=== PATIENT | female | born 1950 | race Caucasian/White ===

== ENCOUNTER 2020-08-13 03:07 | Emergency (ER) | payer MEDICARE, SELFPAY ==
--- NOTE | ~2020-08-13 | CT_ITS ---
EXAMINATION: CT cervical spine wo con DATE: 08/13/2020 04:36 INDICATION: Fall. Neck pain. TECHNIQUE: Computed tomography (CT) of the cervical spine was performed without intravenous contrast. Automated exposure control and iterative reconstruction technique were employed. Exam dose: 111.41 mGy-cm total exam DLP. COMPARISON: None FINDINGS: There is straightening of the cervical spine which may be due to muscle spasm and/or positi oning. C1 and C2 are normally aligned and the odontoid process is intact. There is minimal anterolisthesis at C2-3. There is fusion of the posterior elements at C2-3 and C5-6. There is degenerative change at the remai zoe apophyseal joints. There is severe degenerative disease and prominent uncovertebral joint spurring at C3-4, C4-5, C5-6 a nd C6-7 with associated minimal retrolisthesis at C4-5. . There is minimal anterolisthesis at C7-T1. No fracture or dislocation or locked facet or prevertebral soft tissue swelling is detected. Incidental finding of left thyroid lobe enlargement and calcifications, likely secondary to goiter. IMPRESSION: Straightening; no fracture or dislocation or locked facet Extensive degenerative changes of the cervical spine Reviewed, dictated and finalized at [facility]. Reviewed, dictated and finalized at location [facility].
--- NOTE | ~2020-08-13 | XR_ITS ---
XR pelvis 1-2V DATE: 08/13/2020 04:05 INDICATION: Fall. Pelvic injury. TECHNIQUE: AP views COMPARISON: None FINDINGS: Battery pack overlies left iliac area with electrode extending through a right sacral neura l foramen. Multilevel degenerative disc disease and dextroscoliosis of the lumbar spine. Diffuse osteopenia. The pubic symphysis and sacroiliac joints are intact. No pelvic fracture or bone destruction is evide nt. The hip joint spaces are symmetric and well preserved. No hip fracture or dislocation is evident. IMPRESSION: No pelvic fracture Reviewed, dictated and finalized at location [facility]. IMPRESSION: No pelvic fracture
--- NOTE | ~2020-08-13 | XR_ITS ---
XR chest 1V portable DATE: 08/13/2020 04:05 INDICATION: Fall. TECHNIQUE: Portable upright AP chest on 08/23/2020 at 0332 hours COMPARISON: 05/11/2019 AP chest 11/18/2014 2 view chest FINDINGS: Battery pack overlies the right chest. Wires overlie the left chest, the left battery pack has been removed. Normal heart size. No hilar or mediastinal enlargement. No pulmonary infiltrate or consolidation, ple ural effusion or pulmonary vascular congestion or pneumothorax. Double density in the lower mid chest likely due to hiatal hernia. Diffuse osteopenia. Old right rib fractures. IMPRESSION: No active cardiac pulmonary disease Reviewed, dictated and finalized at location [facility].
--- NOTE | ~2020-08-13 | CT_ITS ---
CT lumbar spine wo con DATE: 08/13/2020 04:36 INDICATION: Fall. Back pain. TECHNIQUE: Axial images through the lumbar spine with sagittal and coronal reconstructions. Exam dose: 697.15 mGy-cm total exam DLP. COMPARISON: None FINDINGS: There is severe likely chronic burst fracture deformity at L1 with up to 6 mm retropulsion of fracture into the spinal canal. There is severe degenerative disc disease at L3-4. There is fusion of the vertebral bodies at L4-5. There is grade 1 anterolisthesis and severe degenerative disc disease at L5-S1. Prominent degenerative change at the apophyseal joints of the lumbar spine, particularly lower lumbar and lumbosacral area. Osteopenia. Incidental finding of hiatal hernia. Left nephrolithiasis. 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 Reviewed, dictated and finalized at location [facility]. 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
--- NOTE | ~2020-08-13 | CT_ITS ---
EXAMINATION: CT brain wo con DATE: 08/13/2020 04:36 INDICATION: Fall. Headache. TECHNIQUE: Computed tomography (CT) of the head was performed without intravenous contrast. The mA wa s adjusted according to patient size. Iterative reconstruction technique was employed. Exam dose: 60 5.33 mGy-cm total exam DLP. COMPARISON: 05/11/2019 CT brain FINDINGS: Bilateral stimulator implants are again noted extending into the thalami. No intracranial mass lesion or hemorrhage or cerebrovascular accident is evident. No midline shift or mass effect. Bilateral carotid siphon internal carotid artery calcifications and vertebral and basilar artery calc ifications. There is nonspecific diminished attenuation of the cerebral white matter, likely due to c hronic small vessel ischemic changes. No subdural or epidural hematoma. There is mucoperiosteal thickening and fluid level of the right maxillary sinus consistent with right maxillary sinusitis. There is partial opacification of anterior right ethmoid air cells. The include d paranasal sinuses and mastoid air cells are otherwise unremarkable. No fracture or bone destruction of the cranial vault. IMPRESSION: Bilateral thalamic stimulator implants Cerebral atherosclerosis and chronic small vessel ischemic changes of cerebral white matter Right maxillary sinusitis Reviewed, dictated and finalized at [facility]. Reviewed, dictated and finalized at location [facility].
[2020-08-13 03:10] VITALS: BP 146/79; PULSE 76; RESP 17; TEMP 36.6; O2SAT 100
--- NOTE | 2020-08-13 03:58 | ED.GENADULT ---
HPI - General Adult General Chief complaint: Fall Stated complaint: unspecified Time Seen by Provider: 08/13/20 03:49 Source: RN notes reviewed History of Present Illness HPI narrative: Patient presents emergency department from [facility] via EMS for a fall. Patient rolled out of bed this a.m. approximately 1 hour prior to arrival. Per the staff her bed is approximately 1 foot off the ground. Patient is complaining of pain in the left lower back. There is no known loss of consciousness. She denies any vision changes numbness or tingling in the extremities chest pain shortness of breath abdominal pain or any other symptoms patient states at baseline she does not ambulate Related Data Allergies Allergy/AdvReac Type Severity Reaction Status Date / Time erythromycin base Allergy Unknown Unverified 01/03/20 14:50 lenalidomide Allergy Unknown Hallucinati Unverified 01/03/20 14:50 on lorazepam Allergy Unknown Confusion Unverified 01/03/20 14:50 metoclopramide Allergy Unknown Unverified 01/03/20 14:50 morphine Allergy Unknown Unverified 01/03/20 14:50 prochlorperazine Allergy Unknown Unverified 01/03/20 14:50 promethazine Allergy Unknown Unverified 01/03/20 14:50 Sulfa (Sulfonamide Allergy Unknown Unverified 01/03/20 14:50 Antibiotics) AMOXICILLIN TRIHYDRATE Allergy Unknown Uncoded 01/03/20 14:50 Ativan Allergy Unknown Uncoded 01/03/20 14:50 erythromycin base Allergy Unknown Uncoded 08/31/18 08:24 POTASSIUM CLAVULANATE Allergy Unknown Uncoded 01/03/20 14:50 Sulfa (Sulfonamide Allergy Unknown Uncoded 08/31/18 08:24 Antibiotics) Review of Systems Review of Systems: Narrative: Gen.: Denies fevers or chills Eyes: Denies eye pain or visual change ENT: Denies congestion Respiratory: Denies shortness of breath or cough CV: Denies chest pain or palpitations GI: Denies abdominal pain nausea, emesis or diarrhea denies bowel or bladder incontinence reports chronic indwelling Flores Musculoskeletal: See HPI Neuro: Denies numbness, tingling, weakness or focal weakness Skin: Denies rash Except as documented, all other systems reviewed and negative [facility] Past Medical History Medical History (Updated 08/13/20 @ 05:14 by Valeriano Wills DO) Dementia Social History Social History (Updated 08/13/20 @ 04:00 by Valeriano Wills DO) Smoking status: Never smoker Exam Narrative: Exam Narrative: APPEARANCE: No acute distress, nontoxic, resting in bed EYES: EOMI PERRL HEENT: Normocephalic, atraumatic, OMM Neck: Supple, no midline tenderness palpation RESPIRATORY: No respiratory distress Clear to auscultation bilaterally with no rhonchi wheezing or rales. CARDIOVASCULAR: Regular rate and rhythm without murmurs rubs or gallops. ABDOMINAL: Soft, nontender, nondistended, no rebound or guarding MUSCULOSKELETAl: Moves all extremities. No clubbing, cyanosis or edema. No tenderness palpation of bilateral upper and lower extremities Back: No midline thoracic lumbar tenderness palpation, tender palpation over left paravertebral muscles L3-5 NEURO: Awake and alert x 3. Following commands, speech normal, no focal deficits SKIN:: Warm, dry. No rashes lesions or abrasions PSYCHIATRIC: Normal affect/mood, Course Course Emergency Course: Following CT scan reevaluate the patient patient with no midline lumbar spine tenderness to palpation specifically no tenderness around the L1 region Discussed with patient results of workup and diagnosis. Discussed need for follow-up with primary care, proper use of medication, and reasons to return to the emergency department. Patient understands and agrees to current treatment plan Vital Signs Vital signs: Vital Signs Temperature 98 F 08/13/20 03:10 Pulse Rate 76 08/13/20 03:10 Respiratory Rate 17 08/13/20 03:10 Blood Pressure 146/79 H 08/13/20 03:10 Pulse Oximetry 100 08/13/20 03:10 Temperature 98 F 08/13/20 03:10 Pulse Rate 76 08/13/20 03:10 Respiratory Rate 17
[2020-08-13 05:00] VITALS: BP 140/76; PULSE 84; RESP 18; O2SAT 94
[2020-08-13 05:27] VITALS: RESP 18
--- NOTE | 2020-08-13 05:44 | PC.NURSE ---
pt states she does not ambulate and gets around with WC
--- NOTE | 2020-08-13 06:08 | PC.NURSE ---
Report given to DELIO Simmons at [place]. All questions/concerns addressed at this time.
[2020-08-13 06:41] VITALS: BP 125/77; PULSE 78; RESP 17; O2SAT 99
--- NOTE | 2020-08-13 07:10 | PC.NURSE ---
ASSUMED PT CARE FROM DELIO HAYES AT THIS TIME.
--- NOTE | 2020-08-13 07:42 | PC.NURSE ---
PER US PT EMS MOVED TO [id number].
[2020-08-13 09:02] VITALS: BP 134/75; PULSE 74; RESP 16; O2SAT 97
[2020-08-13 10:18] VITALS: BP 133/68; PULSE 68; RESP 16; O2SAT 100
== END 2020-08-13 10:19 ==
PROVIDERS: Emergency Provider Emergency Medicine; PCP Internal Medicine
DX: S39.92XA Unspecified injury of lower back, initial encounter (principal); F03.90 Unspecified dementia, unspecified severity, without behavioral disturbance, psychotic disturbance, mood disturbance, and anxiety; J32.0 Chronic maxillary sinusitis; I67.2 Cerebral atherosclerosis; M50.30 Other cervical disc degeneration, unspecified cervical region; M51.36 Other intervertebral disc degeneration, lumbar region; M51.37 Other intervertebral disc degeneration, lumbosacral region; W06.XXXA Fall from bed, initial encounter
CPT/HCPCS: 70450; 71045; 72125; 72131; 72170; 99284

== ENCOUNTER 2020-09-01 10:27 | Outpatient (NON) | payer MEDICARE, SELFPAY ==
[2020-09-01 11:06] LABS: Add Urine Microscopic? YES; Appearance Urine Cloudy (Clear); Bacteria Urine Trace /hpf; Bilirubin Urine Negative (Negative); Blood Urine 1+ (Negative); Color Urine Yellow (Yellow); Glucose Urine UA Negative (Negative); Hyaline Casts Urine 20-29 /lpf; Ketones Urine Trace mg/dL (Negative); Leukocyte Esterase Ur 3+ LEU/UL (NEGATIVE); Mucus Urine Few /lpf; Nitrate Urine Negative (Negative); Protein Urine 1+ mg/dL (Negative); Specific Grav Ur 1.016 (1.001-1.035); Squamous Epithelial Cell Urine Occasional /hpf (Few); Urobilinogen Urine Negative mg/dL (<2.0); WBC Urine >75 /hpf (0-3)
== END 2020-09-01 10:28 ==
PROVIDERS: PCP Internal Medicine; Visit Provider Internal Medicine
DX: G20 Parkinson's disease (principal); R33.9 Retention of urine, unspecified; I69.351 Hemiplegia and hemiparesis following cerebral infarction affecting right dominant side; Z46.6 Encounter for fitting and adjustment of urinary device
CPT/HCPCS: 81001; 87077; 87086; 87088; 87186

== ENCOUNTER 2020-11-17 14:47 | Outpatient (NON) | payer MEDICARE, SELFPAY ==
[2020-11-17 15:52] LABS: Add Urine Microscopic? YES; Appearance Urine Cloudy (Clear); Bacteria Urine Trace /hpf; Bilirubin Urine Negative (Negative); Color Urine Yellow (Yellow); Glucose Urine UA Negative (Negative); Ketones Urine Trace mg/dL (Negative); Leukocyte Esterase Ur 3+ LEU/UL (Negative); Mucus Urine Few /lpf; Nitrate Urine Negative (Negative); Protein Urine 1+ mg/dL (Negative); Specific Grav Ur 1.017 (1.001-1.035); Urobilinogen Urine Negative mg/dL (<2.0); WBC Urine >75 /hpf
[2020-11-17 15:54] LABS: Blood Urine Negative (Negative)
== END 2020-11-17 14:48 ==
PROVIDERS: PCP Internal Medicine; Visit Provider Internal Medicine
DX: N31.9 Neuromuscular dysfunction of bladder, unspecified (principal); G20 Parkinson's disease; Z43.5 Encounter for attention to cystostomy
CPT/HCPCS: 81001; 87077; 87086; 87088; 87186

== ENCOUNTER 2020-12-02 11:26 | Outpatient (NON) | payer MEDICARE, SELFPAY ==
[2020-12-02 11:51] LABS: Add Urine Microscopic? YES; Appearance Urine Turbid (Clear); Bilirubin Urine Negative (Negative); Blood Urine 1+ (Negative); Budding Yeast Urine Present /hpf; Color Urine Yellow (Yellow); Glucose Urine UA Negative (Negative); Ketones Urine Trace mg/dL (Negative); Leukocyte Esterase Ur 2+ LEU/UL (NEGATIVE); Mucus Urine Heavy /lpf; Nitrate Urine Positive (Negative); Protein Urine 3+ mg/dL (Negative); Specific Grav Ur 1.016 (1.001-1.035); Transitional Epi Cells Urine Rare /hpf (None Seen); Urobilinogen Urine Negative mg/dL (<2.0); WBC Urine 31-50 /hpf (0-3)
== END 2020-12-02 11:27 ==
PROVIDERS: PCP Internal Medicine
DX: Z43.5 Encounter for attention to cystostomy (principal); N31.9 Neuromuscular dysfunction of bladder, unspecified; G20 Parkinson's disease; Z46.6 Encounter for fitting and adjustment of urinary device
CPT/HCPCS: 81001; 87077; 87086; 87088; 87186

== ENCOUNTER 2020-12-21 14:59 | Inpatient (IN) | payer MEDICARE, SELFPAY ==
[2020-12-21] VITALS (9 sets, daily range): BP systolic 102–153; BP diastolic 46–79; PULSE 60–87; RESP 14–27; TEMP 36.4–37.6; O2SAT 94–98; BMI 18.6
--- NOTE | ~2020-12-21 | XR_ITS ---
EXAMINATION: XR chest 1V EXAM DATE: 12/21/2020 17:19 INDICATION: Transient alteration of awareness. TECHNIQUE: Portable AP frontal chest x-ray was obtained. There is no prior study for comparison. FINDINGS: Deep brain stimulator pack and leads. The lungs are clear. There are no pleural effusions. The cardiomediastinal silhouette is within normal limits. There is no pneumothorax suspected. The bones and soft tissues are unremarkable. IMPRESSION: No acute cardiopulmonary findings. Reviewed, dictated and finalized at location G. RNMENT GUARD
--- NOTE | ~2020-12-21 | CT_ITS ---
EXAMINATION: CT brain wo con, CT cervical spine wo con EXAM DATE: 12/21/2020 17:17 INDICATION: Altered mental status. TECHNIQUE: Spiral CT of the head was performed without contrast. Axial, coronal and sagittal images were reviewed. The dose-length product (DLP) for this examination was 605.33 (accession [id number]), 92.83 (accession [id number]) mGy-cm. The exposure was tailored according to patient size, a nd iterative reconstruction (ASIR) was used as additional dose reduction technique. Comparison is mad e to prior examination from 08/13/2020. FINDINGS: HEAD CT: There is no acute intraparenchymal hemorrhage. No evidence of intraparenchymal brain mass l esion. No evidence of acute infarction. There is moderate periventricular and subcortical hypodensit y, nonspecific but probably related to small vessel ischemic disease. There is moderate prominence of the sulci and ventricles related to cerebral atrophy. There is intracranial carotid arterioscler osis. There is no mass effect or midline shift. There is no obstructive hydrocephalus suspected. T here are no extra-axial collections. There are no acute calvarial fractures. The orbits are unremar kable. Soft tissue is unremarkable. The visualized sinuses and mastoid air cells are well aerated. CERVICAL CT: There is no evidence of acute cervical fracture. The odontoid process is intact. Pre- dens space is normal. Prevertebral soft tissue is normal. There are no soft tissue abnormalities id entified. There is no disc space widening or traumatic vertebral body subluxation suspected. There is advanced cervical spondylosis. A detailed level by level evaluation of spondylosis can be added a s addendum if requested. IMPRESSION: 1. No acute intracranial findings or cervical fracture. 2. Advanced cervical spondylosis. 3. Age-related intracranial findings. Reviewed, dictated and finalized at location G. EMATIC MACHINE OPERATOR IMPRESSION: 1. No acute intracranial findings or cervical fracture. 2. Advanced cervical spondylosis. 3. Age-related intracranial findings.
--- NOTE | 2020-12-21 15:06 | ED_ITS ---
HPI - General Adult General Chief complaint: Urogenital-Female Stated complaint: supra-pubic catheter Related Data Allergies Allergy/AdvReac Type Severity Reaction Status Date / Time erythromycin base Allergy Unknown Unverified 11/04/20 07:35 lenalidomide Allergy Unknown Hallucinati Unverified 11/04/20 07:35 on lorazepam Allergy Unknown Confusion Unverified 11/04/20 07:35 metoclopramide Allergy Unknown Unverified 11/04/20 07:35 morphine Allergy Unknown Unverified 11/04/20 07:35 prochlorperazine Allergy Unknown Unverified 11/04/20 07:35 promethazine Allergy Unknown Unverified 11/04/20 07:35 Sulfa (Sulfonamide Allergy Unknown Unverified 11/04/20 07:35 Antibiotics) AMOXICILLIN TRIHYDRATE Allergy Unknown Uncoded 11/04/20 07:35 Ativan Allergy Unknown Uncoded 11/04/20 07:35 erythromycin base Allergy Unknown Uncoded 08/31/18 08:24 POTASSIUM CLAVULANATE Allergy Unknown Uncoded 11/04/20 07:35 Sulfa (Sulfonamide Allergy Unknown Uncoded 08/31/18 08:24 Antibiotics) [facility] Past Medical History Medical History (Updated 08/14/20 @ 00:00 by Salina Alonso) Dementia Social History Social History (Updated 08/13/20 @ 04:00 by Valeriano Wills DO) Smoking status: Never smoker
--- NOTE | 2020-12-21 15:18 | ED.GENADULT ---
HPI - General Adult General Chief complaint: Urogenital-Female Stated complaint: supra-pubic catheter Source: EMS History of Present Illness HPI narrative: Patient is a 70 y/o female brought in by EMS for suprapubic catheter problem. Family requested catheter be irrigated. There has been some leakage around the catheter. Patient is unable to provide any history. reports that patient has been more confused during last 2 days. Related Data Home Medications Medication Instructions Recorded Confirmed ascorbic acid (vitamin C) 500 mg PO DAILY 12/21/20 12/21/20 carbidopa-levodopa tablet 12/21/20 carbidopa-levodopa tablet PO 12/21/20 dexamethasone 12/21/20 methenamine hippurate g 12/21/20 paroxetine HCl mg PO 12/21/20 pomalidomide 2 mg PO DAILY 12/21/20 12/21/20 potassium chloride meq PO 12/21/20 valacyclovir 12/21/20 12/21/20 Allergies Allergy/AdvReac Type Severity Reaction Status Date / Time erythromycin base Allergy Unknown Other Verified 12/21/20 18:30 lenalidomide Allergy Unknown Hallucinati Verified 12/21/20 18:30 on lorazepam Allergy Unknown Confusion Verified 12/21/20 18:30 metoclopramide Allergy Unknown Other Verified 12/21/20 18:30 morphine Allergy Unknown Other Verified 12/21/20 18:30 prochlorperazine Allergy Unknown Other Verified 12/21/20 18:30 promethazine Allergy Unknown Other Verified 12/21/20 18:30 Sulfa (Sulfonamide Allergy Unknown Other Verified 12/21/20 18:30 Antibiotics) AMOXICILLIN TRIHYDRATE Allergy Unknown Other Uncoded 12/21/20 18:30 Ativan Allergy Unknown Other Uncoded 12/21/20 18:30 erythromycin base Allergy Unknown Other Uncoded 12/21/20 18:30 POTASSIUM CLAVULANATE Allergy Unknown Other Uncoded 12/21/20 18:30 Sulfa (Sulfonamide Allergy Unknown Other Uncoded 12/21/20 18:30 Antibiotics) Review of Systems Review of Systems: ROS unobtainable: Yes unobtainable due to mental status PMFSH Past Medical History Medical History (Updated 12/21/20 @ 20:31 by Adina Lang MD) Dementia Social History Social History (Updated 08/13/20 @ 04:00 by Valeriano Wills DO) Smoking status: Never smoker Gender identity (if verbalized by the patient): Female Exam Const: General: no acute distress and well developed Orientation/consciousness: lethargic HENMT: Head: normocephalic Ears: external ears normal General nose exam: Normal external nose present Eyes: General: appearance normal, both eyes and all related structures Conjunctivae: conjunctivae normal Neck: Neck: normal visual inspection and full ROM Chest: Chest palpation & inspection: normal inspection of the chest and no tenderness Resp: Effort & Inspection: normal respiratory effort Auscultation: clear to auscultation bilaterally Cardio: Rate: regular rate Rhythm: regular rhythm GI: GI Palp: No abdominal tenderness and Yes Soft to palpation Skin: General skin exam: normal color and turgor normal Neuro: General: other (awake, does not answer questions for follow commands) Extrem: General: normal to inspection, full ROM and no pedal edema Psych: Appearance: grossly normal Mental Status: mental status grossly normal Affect: normal affect Course Reevaluation(s) Reevaluation #1: Suprapubic catheter is changed. Date: 12/21/20 Time: 19:30 Consultations Consultation #1: Discussed with Dr. Anderson, who agrees to admit. Date: 12/21/20 Time: 19:18 Vital Signs Vital signs: Vital Signs Temperature 36.4 C L 12/21/20 15:13 Pulse Rate 60 12/21/20 15:13 Respiratory Rate 26 H 12/21/20 15:13 Blood Pressure 119/66 12/21/20 15:13 Pulse Oximetry 94 12/21/20 15:13 Temperature 37.6 C 12/21/20 19:35 Pulse Rate 76 12/21/20 20:15 Respiratory Rate 22 H 12/21/20 20:15 Blood Pressure 102/56 L 12/21/20 20:15 Pulse Oximetry 94 12/21/20 20:15 Medical Decision Making Vital Signs Vital Signs: Vital Signs Temperature 36.4 C L 12/21/20 15:13 Pulse Rate 60 12/21/20 15:13 Re
[2020-12-21 16:37] LABS: Basophils Percent Auto 0.4 % (0.2-1.2); Eosinophils Absolute Auto 0.1 K/mm3 (0-0.3); Eosinophils Percent Auto 0.9 % (0-4.4); Hemoglobin 11.7 g/dL (12.0-15.0); Immature Granulocyte Absolute 0.29 K/mm3 (0.00-0.031); Immature Granulocyte Percent A 2.7 % (0-0.5); Lymphocytes Absolute Auto 1.12 K/mm3 (0.9-3.2); Lymphocytes Percent Auto 10.4 % (18.3-44.2); Mean Corpuscular HGB Conc 33.4 g/dl (32-36); Mean Corpuscular Hemoglobin 32.8 pg (26-34); Mean Platelet Volume 9.2 fl (7.4-10.4); Monocytes Absolute Auto 1.2 K/mm3 (0.1-0.6); Monocytes Percent Auto 10.8 % (2.6-8.5); Neutrophils Absolute Auto 8.1 K/mm3 (1.3-6.7); Neutrophils Percent Auto 74.8 % (45.5-73.1); Platelet Count Result 205 k/mm3 (150-375); Red Blood Count 3.57 M/mm3 (4.2-5.4); Red Cell Distribution Width 16.9 % (11.5-14.5); White Blood Count 10.8 K/mm3 (4.5-10.0)
--- NOTE | 2020-12-21 16:44 | PC.NURSE ---
spoke with pt , he states that patient is normal lucid. States that she gets frequent UTIs, he states that her urine was dark yellow yesterday and she was slightly confused but today she was worse. When asked where all her bruises are from he states she falls
[2020-12-21 16:47] LABS: Add Urine Microscopic? YES; Appearance Urine Cloudy (Clear); Bacteria Urine Trace /hpf; Bilirubin Urine 1+ (Negative); Blood Urine 1+ (Negative); Color Urine Red (Yellow); Glucose Urine UA Negative (Negative); Ketones Urine Trace mg/dL (Negative); Leukocyte Esterase Ur 2+ LEU/UL (Negative); Mucus Urine Moderate /lpf; Nitrate Urine Negative (Negative); Protein Urine 3+ mg/dL (Negative); RBC Urine 51-75 /hpf (0-2); Specific Grav Ur 1.019 (1.001-1.035); Squamous Epithelial Cell Urine Rare /hpf (Few); Urobilinogen Urine Negative mg/dL (<2.0); WBC Urine 16-20 /hpf
[2020-12-21 16:54] LABS: Albumin Level 3.6 g/dL (3.5-5.1); Alkaline Phosphatase 79 U/L (38-126); Anion Gap 2 mmol/L (8-16); Aspartate Amino Transferase 13 U/L (14-36); Bilirubin,Total 0.5 mg/dL (0.2-1.3); Blood Urea Nitrogen 35 mg/dL (7-17); Carbon Dioxide 24 mmol/L (22-30); Chloride 117 mmol/L (98-107); Estimated Glomerular Filt Rate 44; Glucose 118 mg/dL (65-105); Potassium 4.2 mmol/L (3.4-5.0); Sodium 143 mmol/L (137-145)
[2020-12-21 16:56] LABS: Alanine Aminotransferase < 6 U/L (4-35)
[2020-12-21] MEDS: CARBIDOPA/LEVODOPA 25/100 MG CR TABLET 2 TABLET PO (18:58)
--- NOTE | 2020-12-21 19:38 | PC.NURSE ---
Bedside report received from DELIO Pressley. Pt resting on stretcher. Dr. Lang at bedside and suprapubic catheter changed with immediate return approx 100cc cloudy tea colored urine. Note dressing around existing catheter wet and appears to be leaking (insert date says Dec 05). Pt soiled of stool and cleansed. Note reddened perianal area. New adult diaper placed, pt rolled onto right side. Note multiple greenish yellow bruises in various stages of healing. Pt also has an outline of a device on her left hip, as well as ?pacer to right chest and another device to left chest. Pt nonverbal, nods head yes and no to questions. Awaiting bed assignment.
[2020-12-21] MEDS: SODIUM CHLORIDE 0.9% IV 1,000 ML 125 ML IV CONT (19:57)
--- NOTE | 2020-12-21 20:34 | PC.NURSE ---
Floor unable to take report x2 attempts, no charge nurse available. Will return call as soon as possible. ED bellows charger assembler made aware.
--- NOTE | 2020-12-21 20:50 | ADMGEN ---
This patient, Adia Pereyra [facility], was admitted to 3 Medical Room 341-01. Patient/family oriented to hospital policies and general routines including ID bracelet, bed and alarms, visiting hours, pain management, procedures, bathroom and other care routines, personal items, smoking policy, room service/diet, and visiting hours. Information on how to activate the Rapid Response Team has been discussed. Patient/Family are encouraged to report perceived risks to care and to ask questions if they do not understand what they are told or what they should do.
--- NOTE | 2020-12-21 22:08 | PM.IMHP ---
H&P: HPI History of Present Illness Date/Time: 12/21/20 22:08 Chief Complaint: Acute altered mental status. Narrative: This is a 70 year old demented female who is nonverbal and known to have a chronic indwelling suprapubic catheter who presented to the hospital secondary to urine leaking around her catheter. The family requested that the catheter be irrigated. Her had reported to ER provider that the patient appeared more confused over the past 2 days. Routine labs were obtained in the ER which demonstrated an abnormal urinalysis which is not surprising as she has a chronic suprapubic catheter. Brain CT was obtained which was negative for any acute intracranial pathology. The patient was admitted to the hospital for possible UTI and acute confusion. On my encounter with the patient no history is obtainable as the patient is nonverbal. Review of Systems Review of Systems: ROS unobtainable: Yes unobtainable due to medical condition and unobtainable due to mental status PMFSH Past Medical History Medical History Dementia Family History Family History Mother Breast cancer Cerebrovascular accident Father Myocardial infarction Social History Social History Smoking status: Never smoker Alcohol intake: former Substance use: never Substance use type: does not use Living arrangements: with family Occupation/Education: retired Gender identity (if verbalized by the patient): Female Spiritual care concerns: No Comments Past histories are only reviewed in the EMR as the patient is nonverbal. Meds Home Medications and Allergies Home Medications Medication Instructions Recorded Confirmed Type acetaminophen 500 mg PO Q6H PRN 12/21/20 12/21/20 History ascorbic acid (vitamin C) 500 mg PO DAILY 12/21/20 12/21/20 History bimatoprost [Lumigan] 1 drp EACH EYE HS 12/21/20 12/21/20 History carbidopa-levodopa 1 tablet PO HS 12/21/20 12/21/20 History carbidopa-levodopa 2 tablet PO QID 12/21/20 12/21/20 History cholecalciferol (vitamin D3) 125 mcg PO DAILY 12/21/20 12/21/20 History cyanocobalamin (vitamin B-12) 1,000 mcg SUBLINGUAL DAILY 12/21/20 12/21/20 History folic acid 0.4 mg PO DAILY 12/21/20 12/21/20 History methenamine hippurate 1 g PO BID 12/21/20 12/21/20 History paroxetine HCl 40 mg PO DAILY 12/21/20 12/21/20 History pomalidomide 2 mg PO DAILY 12/21/20 12/21/20 History potassium chloride 20 meq PO DAILY 12/21/20 12/21/20 History valacyclovir 500 mg PO BID 12/21/20 12/21/20 History Allergies Allergy/AdvReac Type Severity Reaction Status Date / Time erythromycin base Allergy Unknown Other Verified 12/21/20 21:55 lenalidomide Allergy Unknown Hallucinati Verified 12/21/20 21:55 on lorazepam Allergy Unknown Confusion Verified 12/21/20 21:55 metoclopramide Allergy Unknown Other Verified 12/21/20 21:55 morphine Allergy Unknown Other Verified 12/21/20 21:55 prochlorperazine Allergy Unknown Other Verified 12/21/20 21:55 promethazine Allergy Unknown Other Verified 12/21/20 21:55 Sulfa (Sulfonamide Allergy Unknown Other Verified 12/21/20 21:55 Antibiotics) AMOXICILLIN TRIHYDRATE Allergy Unknown Other Uncoded 12/21/20 18:30 Ativan Allergy Unknown Other Uncoded 12/21/20 18:30 erythromycin base Allergy Unknown Other Uncoded 12/21/20 18:30 POTASSIUM CLAVULANATE Allergy Unknown Other Uncoded 12/21/20 18:30 Sulfa (Sulfonamide Allergy Unknown Other Uncoded 12/21/20 18:30 Antibiotics) Vital Signs Vital Signs - 24 hr 12/21/20 15:13 12/21/20 17:01 12/21/20 17:45 Temperature 36.4 C L Pulse Rate 60 84 87 Respiratory Rate 26 H 26 H 24 H Blood Pressure 119/66 132/79 148/70 H Pulse Oximetry 94 95 96 12/21/20 18:15 12/21/20 19:15 12/21/20 19:35 Temperature 37.6 C Pulse Rate 84 84 83 Respiratory Rate 17 19 Blood Pressure 13
[2020-12-22 00:21] LABS: Barbiturate Screen Urine Negative (Negative); Benzodiazepines Screen Urine Negative (Negative)
[2020-12-22 00:25] LABS: Amphetamine Screen Urine Negative (Negative); Cannabinoid Screen Urine Negative (Negative); Cocaine Screen Urine Negative (Negative); Methadone Screen Urine Negative (Negative); Opiate Screen Urine Negative (Negative); Phencyclidine Screen Urine Negative (Negative)
[2020-12-22] MEDS: SODIUM CHLORIDE 0.9% IV 1,000 ML 125 ML IV CONT ×3 (01:42→18:13)
[2020-12-22 05:47] LABS: Basophils Absolute Auto 0.1 K/mm3 (0.0-0.1); Basophils Percent Auto 0.5 % (0.2-1.2); Eosinophils Absolute Auto 0.2 K/mm3 (0-0.3); Eosinophils Percent Auto 2.1 % (0-4.4); Hematocrit 32.1 % (37.0-47.0); Hemoglobin 10.1 g/dL (12.0-15.0); Immature Granulocyte Absolute 0.18 K/mm3 (0.00-0.031); Immature Granulocyte Percent A 1.8 % (0-0.5); Lymphocytes Absolute Auto 0.95 K/mm3 (0.9-3.2); Lymphocytes Percent Auto 9.7 % (18.3-44.2); Mean Corpuscular HGB Conc 31.5 g/dl (32-36); Mean Corpuscular Hemoglobin 30.8 pg (26-34); Mean Corpuscular Volume 97.9 fl (80-100); Mean Platelet Volume 9.4 fl (7.4-10.4); Monocytes Absolute Auto 1.1 K/mm3 (0.1-0.6); Monocytes Percent Auto 11.1 % (2.6-8.5); Neutrophils Absolute Auto 7.3 K/mm3 (1.3-6.7); Neutrophils Percent Auto 74.8 % (45.5-73.1); Platelet Count Result 184 k/mm3 (150-375); Red Blood Count 3.28 M/mm3 (4.2-5.4); Red Cell Distribution Width 17.1 % (11.5-14.5); White Blood Count 9.8 K/mm3 (4.5-10.0)
[2020-12-22 06:00] VITALS: BP 131/52; PULSE 88; RESP 16; TEMP 36.9; O2SAT 95
[2020-12-22 06:02] LABS: Anion Gap 4 mmol/L (8-16); Blood Urea Nitrogen 36 mg/dL (7-17); Calcium 8.3 mg/dL (8.4-10.2); Carbon Dioxide 21 mmol/L (22-30); Chloride 121 mmol/L (98-107); Estimated CRCL calculation 42 ml/min; Estimated Glomerular Filt Rate > 60; Glucose 103 mg/dL (65-105); Potassium 3.9 mmol/L (3.4-5.0); Sodium 146 mmol/L (137-145)
[2020-12-22 06:50] LABS: Thyroid Stimulating Hormone Reflex 0.377 uIU/mL (0.465-4.68)
[2020-12-22 07:36] LABS: Free T4 Free Thyroxine Reflex 1.22 ng/dL (0.78-2.19)
[2020-12-22 07:51] VITALS: O2SAT 95
[2020-12-22 08:49] LABS: Total Triiodothyronine (T3) 0.71 NG/ML (0.97-1.69)
[2020-12-22] MEDS: CARBIDOPA/LEVODOPA 25/100 MG TABLET 2 TABLET PO ×4 (09:00→18:05)
[2020-12-22] MEDS: FOLIC ACID 0.4 MG TABLET PO (09:00)
[2020-12-22] MEDS: CYANOCOBALAMIN 1,000 MCG TABLET 1000 MCG BY MOUTH (09:01)
[2020-12-22] MEDS: ASCORBIC ACID 500 MG TABLET PO (09:01)
[2020-12-22] MEDS: valACYclovir HCL 500 MG TABLET PO ×2 (09:01→16:00)
[2020-12-22] MEDS: CHOLECALCIFEROL 1,000 UNITS TABLET 5000 UNITS PO (09:01)
[2020-12-22] MEDS: PARoxetine 20 MG TABLET 40 MG PO (09:01)
[2020-12-22] MEDS: ENOXAPARIN 40 MG/0.4 ML SYRINGE SUB-Q (09:02)
[2020-12-22 14:10] VITALS: BP 168/72; PULSE 74; RESP 18; TEMP 36.9; O2SAT 94
--- NOTE | 2020-12-22 18:36 | PM.IMPN ---
Progress Note: A&P Assessment and Plan (1) UTI (urinary tract infection): Qualifiers: Encounter type: initial encounter Indwelling urinary catheter type: cystostomy catheter Urinary tract infection type: catheter-associated UTI Qualified Code(s): T83.510A - Infection and inflammatory reaction due to cystostomy catheter, initial encounter; N39.0 - Urinary tract infection, site not specified Code(s): N39.0 - Urinary tract infection, site not specified Status: Acute Assessment and Plan: Currently on Rocephin Awaiting Ua cx I&S Deescalate antibiotics as needed (2) Altered mental status: Qualifiers: Altered mental status type: unspecified Qualified Code(s): R41.82 - Altered mental status, unspecified Code(s): R41.82 - Altered mental status, unspecified Status: Acute Assessment and Plan: Secondary to UTI Patient with Parkinson's dementia as well. Much improved. (3) Chronic indwelling Flores catheter: Code(s): Z97.8 - Presence of other specified devices Status: Acute Assessment and Plan: Was exchanged in ED. Continue catheter care. (4) Normocytic anemia: Code(s): D64.9 - Anemia, unspecified Status: Chronic Assessment and Plan: Continue to monitor (5) Renal failure: Qualifiers: Renal failure chronicity: unspecified chronicity Qualified Code(s): N19 - Unspecified kidney failure Code(s): N19 - Unspecified kidney failure Status: Acute Assessment and Plan: Continue to monitor BMP (6) Dementia: Qualifiers: Dementia type: unspecified type Dementia behavioral disturbance: without behavioral disturbance Qualified Code(s): F03.90 - Unspecified dementia without behavioral disturbance Code(s): F03.90 - Unspecified dementia without behavioral disturbance Status: Chronic Subjective Date/time seen: 12/22/20 18:36 Patient munbles words. Review of Systems Review of Systems: ROS unobtainable: Yes unobtainable due to medical condition (Delirious.) Exam Narrative: Exam Narrative: Lying in bed. Const: General: no acute distress, ill appearing and other (Delirious.) Nutritional Appearance: cachectic HENMT: Head: normal to inspection and normocephalic General nose exam: Normal external nose present Face and sinus: normal facial exam Eyes: General: appearance normal, both eyes and all related structures Pupils: Equal, round and reactive pupils present EOM: EOMs intact bilaterally Neck: Neck: no lymphadenopathy, supple and no JVD Resp: Effort & Inspection: normal respiratory effort Auscultation: clear to auscultation bilaterally Cardio: Jugular venous distension: no JVD Rate: regular rate Rhythm: regular rhythm GI: GI Palp: Yes Soft to palpation and Yes No hepatosplenomegaly present : General: Yes other (Suprpubic catheter.) Skin: Rashes: no rashes Neuro: General: CN's II-XI intact bilaterally and other (delirious.) Cranial nerves: Yes CN's II-XII intact bilaterally and Yes Equal, round and reactive pupils present Gait exam (Neuro): Unable to assess gait Motor exam (neuro): 5/5 motor strength present throughout Extrem: General: no pedal edema Objective Data Vital Signs Vital Signs: Vital Signs - 24 hr 12/21/20 19:15 12/21/20 19:35 12/21/20 20:00 Temperature 99.6 F Pulse Rate 84 83 82 Respiratory Rate 17 19 27 H Blood Pressure 128/76 153/67 H 111/63 Pulse Oximetry 95 97 98 12/21/20 20:15 12/21/20 21:16 12/22/20 06:00 Temperature 98.6 F 98.4 F Pulse Rate 76 82 88 Respiratory Rate 22 H 14 16 Blood Pressure 102/56 L 123/46 L 131/52 L Pulse Oximetry 94 96 95 12/22/20 07:51 12/22/20 14:10 Temperature 98.4 F Pulse Rate 74 Respiratory Rate 18 Blood Pressure 168/72 H Pulse Oximetry 95 94 Intake/Output Intake/Output: Intake & Output 12/19/20 12/20/20 12/21/20 12/22/20 23:59 23:59 23:59 23:59 Intake Total 50 3100 Outp
[2020-12-22 19:31] VITALS: BP 154/65; PULSE 75; RESP 17; TEMP 37.1; O2SAT 96
[2020-12-22] MEDS: CARBIDOPA/LEVODOPA 25/100 MG CR TABLET 1 TABLET PO (20:03)
[2020-12-22] MEDS: LATANOPROST 0.005% OP SOLN 2.5 ML BTL 1 DROP EACH EYE (20:03)
[2020-12-23] MEDS: SODIUM CHLORIDE 0.9% IV 1,000 ML 125 ML IV CONT (02:27)
[2020-12-23] MEDS: ACETAMINOPHEN 325 MG TABLET 650 MG PO ×3 (04:03→20:00)
[2020-12-23 04:34] VITALS: BP 155/79; PULSE 72; RESP 18; TEMP 36.8; O2SAT 98
[2020-12-23] MEDS: CARBIDOPA/LEVODOPA 25/100 MG TABLET 2 TABLET PO ×4 (08:28→17:14)
[2020-12-23] MEDS: CYANOCOBALAMIN 1,000 MCG TABLET 1000 MCG BY MOUTH (08:29)
[2020-12-23] MEDS: valACYclovir HCL 500 MG TABLET PO ×2 (08:29→17:14)
[2020-12-23] MEDS: FOLIC ACID 0.4 MG TABLET PO (08:29)
[2020-12-23] MEDS: ASCORBIC ACID 500 MG TABLET PO (08:29)
[2020-12-23] MEDS: PARoxetine 20 MG TABLET 40 MG PO (08:29)
[2020-12-23] MEDS: ENOXAPARIN 40 MG/0.4 ML SYRINGE SUB-Q (08:30)
[2020-12-23] MEDS: CHOLECALCIFEROL 1,000 UNITS TABLET 5000 UNITS PO (08:30)
[2020-12-23] MEDS: DEXTROSE 5%/0.45% SOD CHL 1,000 ML 65 ML IV CONT (12:06)
[2020-12-23 13:11] VITALS: BP 144/83; PULSE 68; RESP 16; TEMP 36.2; O2SAT 97
--- NOTE | 2020-12-23 14:26 | PC.NURSE ---
On 12/23/20, the student, [ Brigida Larsen], provided care and completed [facility] documentation on this patient. I have reviewed the student's documentation and agree with the findings.
--- NOTE | 2020-12-23 15:38 | PHAR ---
HOME MED VERIFIED = [facility] [id number] POMALYST 2MG CAPS 1 CAP EVERY OTHER DAY. 3 CAPS IN RX BOTTLE.
[2020-12-23] MEDS: FUROSEMIDE INJ 40 MG/4 ML VIAL 20 MG IV PUSH (17:14)
--- NOTE | 2020-12-23 18:03 | PM.IMPN ---
Progress Note: A&P Assessment and Plan (1) UTI (urinary tract infection): Qualifiers: Encounter type: initial encounter Indwelling urinary catheter type: cystostomy catheter Urinary tract infection type: catheter-associated UTI Qualified Code(s): T83.510A - Infection and inflammatory reaction due to cystostomy catheter, initial encounter; N39.0 - Urinary tract infection, site not specified Code(s): N39.0 - Urinary tract infection, site not specified Status: Acute Assessment and Plan: On Rocephin Ua cx growing gram negative Bacilli Awaiting Ua I&S Deescalate antibiotic as needed (2) Chronic indwelling Flores catheter: Code(s): Z97.8 - Presence of other specified devices Status: Acute Assessment and Plan: S/p exchanged (3) Altered mental status: Qualifiers: Altered mental status type: unspecified Qualified Code(s): R41.82 - Altered mental status, unspecified Code(s): R41.82 - Altered mental status, unspecified Status: Acute Assessment and Plan: Likely secondary to UTI/dehydration/poor oral intake Patient with Parkinson's Dementia. (4) Renal failure: Qualifiers: Renal failure chronicity: unspecified chronicity Qualified Code(s): N19 - Unspecified kidney failure Code(s): N19 - Unspecified kidney failure Status: Acute Assessment and Plan: Gentle hydration Daily BMP. Continue to monitor Bun/Cr. (5) Normocytic anemia: Code(s): D64.9 - Anemia, unspecified Status: Chronic Assessment and Plan: Likely anemia of chronic disease. Continue to monitor. (6) Abnormal urinalysis: Code(s): R82.90 - Unspecified abnormal findings in urine Status: Acute Assessment and Plan: UTI (7) Dementia: Qualifiers: Dementia type: unspecified type Dementia behavioral disturbance: without behavioral disturbance Qualified Code(s): F03.90 - Unspecified dementia without behavioral disturbance Code(s): F03.90 - Unspecified dementia without behavioral disturbance Status: Chronic Assessment and Plan: Parkinson's (8) Multiple myeloma: Code(s): C90.00 - Multiple myeloma not having achieved remission Status: Inactive Assessment and Plan: Continue Pomalidomide Follow up in the outpatient setting. Subjective Date/time seen: 12/23/20 18:03 Mumbles to questions. Review of Systems Review of Systems: ROS unobtainable: Yes unobtainable due to medical condition, unobtainable due to mental status and other (Likely underlying dementia.) Exam Narrative: Exam Narrative: Lying in bed Const: General: comfortable, no acute distress, awake and ill appearing Nutritional Appearance: cachectic Orientation/consciousness: oriented to person Limitations: altered mental status (Likely dementia.) HENMT: Head: other (Bitemporal muscle wasting.) General nose exam: Normal external nose present Face and sinus: normal facial exam Eyes: General: appearance normal, both eyes and all related structures EOM: EOMs intact bilaterally Neck: Neck: no lymphadenopathy, supple and no JVD Lymphatic: no lymphadenopathy noted Resp: Effort & Inspection: normal respiratory effort Auscultation: clear to auscultation bilaterally Cardio: Rate: regular rate Rhythm: regular rhythm GI: GI Palp: Yes Soft to palpation and Yes No hepatosplenomegaly present Skin: Rashes: no rashes Wounds: no wounds Neuro: General: oriented to person and CN's II-XI intact bilaterally Cranial nerves: Yes CN's II-XII intact bilaterally and Yes Equal, round and reactive pupils present Cognition (Neuro): abnormal cognition (Underlying dementia) Motor exam (neuro): 5/5 motor strength present throughout Extrem: General: no pedal edema and other (Generalized muscle atrophy) Objective Data Vital Signs Vital Signs: Vital Signs - 24 hr 12/22/20 19:31 12/23/20 04:34 12/23/20 13:11 Temperatu
[2020-12-23] MEDS: CARBIDOPA/LEVODOPA 25/100 MG CR TABLET 1 TABLET PO (20:00)
[2020-12-23 22:00] VITALS: BP 167/93; PULSE 64; RESP 16; TEMP 36.2; O2SAT 95
[2020-12-24] MEDS: DEXTROSE 5%/0.45% SOD CHL 1,000 ML 65 ML IV CONT ×2 (04:09→19:56)
[2020-12-24 06:00] VITALS: BP 171/80; PULSE 57; RESP 16; TEMP 35.7; O2SAT 98
[2020-12-24] MEDS: valACYclovir HCL 500 MG TABLET PO ×2 (08:30→17:00)
[2020-12-24] MEDS: CYANOCOBALAMIN 1,000 MCG TABLET 1000 MCG BY MOUTH (08:30)
[2020-12-24] MEDS: CHOLECALCIFEROL 1,000 UNITS TABLET 5000 UNITS PO (08:30)
[2020-12-24] MEDS: PARoxetine 20 MG TABLET 40 MG PO (08:30)
[2020-12-24] MEDS: CARBIDOPA/LEVODOPA 25/100 MG TABLET 2 TABLET PO ×4 (08:31→17:00)
[2020-12-24] MEDS: FUROSEMIDE INJ 40 MG/4 ML VIAL 20 MG IV PUSH ×2 (08:31→17:00)
[2020-12-24] MEDS: ENOXAPARIN 40 MG/0.4 ML SYRINGE SUB-Q (08:31)
[2020-12-24] MEDS: FOLIC ACID 0.4 MG TABLET PO (08:31)
[2020-12-24] MEDS: ASCORBIC ACID 500 MG TABLET PO (08:31)
--- NOTE | 2020-12-24 13:25 | PCOTNOTE ---
Attempted to see Patient for P.M. treatment session. Patient refused to participate, Patient holding her eyes closed, verbalized NO when persuing movement. Patient very resistive to any activity.
[2020-12-24 14:00] VITALS: BP 113/83; PULSE 70; RESP 20; TEMP 36.8; O2SAT 98
[2020-12-24] MEDS: CARBIDOPA/LEVODOPA 25/100 MG CR TABLET 1 TABLET PO (20:00)
[2020-12-24 21:36] VITALS: BP 123/47; PULSE 73; RESP 16; TEMP 36.5; O2SAT 97
[2020-12-25 05:53] VITALS: BP 154/61; PULSE 65; RESP 16; TEMP 36.1; O2SAT 98
[2020-12-25] MEDS: CYANOCOBALAMIN 1,000 MCG TABLET 1000 MCG BY MOUTH (09:17)
[2020-12-25] MEDS: PARoxetine 20 MG TABLET 40 MG PO (09:17)
[2020-12-25] MEDS: CARBIDOPA/LEVODOPA 25/100 MG TABLET 2 TABLET PO ×4 (09:17→17:56)
[2020-12-25] MEDS: ASCORBIC ACID 500 MG TABLET PO (09:17)
[2020-12-25] MEDS: valACYclovir HCL 500 MG TABLET PO ×2 (09:18→16:00)
[2020-12-25] MEDS: CHOLECALCIFEROL 1,000 UNITS TABLET 5000 UNITS PO (09:18)
[2020-12-25] MEDS: ENOXAPARIN 40 MG/0.4 ML SYRINGE SUB-Q (09:18)
[2020-12-25] MEDS: FOLIC ACID 0.4 MG TABLET PO (09:18)
[2020-12-25] MEDS: FUROSEMIDE INJ 40 MG/4 ML VIAL 20 MG IV PUSH (09:18)
[2020-12-25] MEDS: DEXTROSE 5%/0.45% SOD CHL 1,000 ML 65 ML IV CONT (11:14)
[2020-12-25 11:31] LABS: Basophils Percent Auto 0.6 % (0.2-1.2); Eosinophils Absolute Auto 0.4 K/mm3 (0-0.3); Eosinophils Percent Auto 4.8 % (0-4.4); Hematocrit 32.9 % (37.0-47.0); Hemoglobin 10.9 g/dL (12.0-15.0); Immature Granulocyte Percent A 4.1 % (0-0.5); Lymphocytes Percent Auto 13.8 % (18.3-44.2); Mean Corpuscular HGB Conc 33.1 g/dl (32-36); Mean Corpuscular Hemoglobin 31.5 pg (26-34); Mean Corpuscular Volume 95.1 fl (80-100); Mean Platelet Volume 9.2 fl (7.4-10.4); Monocytes Percent Auto 13.3 % (2.6-8.5); Neutrophils Absolute Auto 4.6 K/mm3 (1.3-6.7); Neutrophils Percent Auto 63.4 % (45.5-73.1); Platelet Count Result 174 k/mm3 (150-375); Red Blood Count 3.46 M/mm3 (4.2-5.4); Red Cell Distribution Width 15.2 % (11.5-14.5); White Blood Count 7.3 K/mm3 (4.5-10.0)
[2020-12-25 11:48] LABS: Anion Gap 2 mmol/L (8-16); Blood Urea Nitrogen 7 mg/dL (7-17); Calcium 7.6 mg/dL (8.4-10.2); Carbon Dioxide 32 mmol/L (22-30); Chloride 100 mmol/L (98-107); Estimated CRCL calculation 61 ml/min; Estimated Glomerular Filt Rate > 60; Glucose 90 mg/dL (65-105); Sodium 134 mmol/L (137-145)
[2020-12-25 14:00] VITALS: BP 114/64; PULSE 63; RESP 16; TEMP 36.5; O2SAT 99
--- NOTE | 2020-12-25 15:18 | PM.IMPN ---
Progress Note: A&P Assessment and Plan (1) Chronic indwelling Flores catheter: Code(s): Z97.8 - Presence of other specified devices Status: Acute Assessment and Plan: S/p exchange Continue catheter care (2) Altered mental status: Qualifiers: Altered mental status type: unspecified Qualified Code(s): R41.82 - Altered mental status, unspecified Code(s): R41.82 - Altered mental status, unspecified Status: Acute Assessment and Plan: Resolved (3) UTI (urinary tract infection): Qualifiers: Encounter type: initial encounter Indwelling urinary catheter type: cystostomy catheter Urinary tract infection type: catheter-associated UTI Qualified Code(s): T83.510A - Infection and inflammatory reaction due to cystostomy catheter, initial encounter; N39.0 - Urinary tract infection, site not specified Code(s): N39.0 - Urinary tract infection, site not specified Status: Acute Assessment and Plan: On Rocephin Will start po antibiotic going home to complete 7 days of antibiotic course. (4) Dementia: Qualifiers: Dementia type: unspecified type Dementia behavioral disturbance: without behavioral disturbance Qualified Code(s): F03.90 - Unspecified dementia without behavioral disturbance Code(s): F03.90 - Unspecified dementia without behavioral disturbance Status: Chronic Assessment and Plan: Close to baseline (5) Multiple myeloma: Code(s): C90.00 - Multiple myeloma not having achieved remission Status: Acute Assessment and Plan: Continue home med Patient is using her own (6) Parkinson disease: Code(s): G20 - Parkinson's disease Status: Acute Assessment and Plan: Continue Carbidopa-Levodopa Supportive care Subjective Date/time seen: 12/25/20 15:18 States that she feels fine Review of Systems Review of Systems: ROS unobtainable: Yes unobtainable due to medical condition and other (Dementia.) Exam Narrative: Exam Narrative: Lying in bed Const: General: comfortable, no acute distress, alert, awake and Physically active Nutritional Appearance: cachectic Orientation/consciousness: oriented to person and oriented to place HENMT: Head: normocephalic Ears: hearing grossly normal bilaterally General nose exam: Normal external nose present Face and sinus: normal facial exam Eyes: General: appearance normal, both eyes and all related structures Pupils: Equal, round and reactive pupils present EOM: EOMs intact bilaterally Neck: Neck: no lymphadenopathy, supple and no JVD Resp: Auscultation: clear to auscultation bilaterally Cardio: Jugular venous distension: no JVD Rate: regular rate Rhythm: regular rhythm GI: GI Palp: Yes Soft to palpation and Yes No hepatosplenomegaly present Skin: Lesions: no lesions Rashes: no rashes Neuro: General: oriented to person, oriented to place and CN's II-XI intact bilaterally Cranial nerves: Yes CN's II-XII intact bilaterally and Yes Equal, round and reactive pupils present Speech: normal speech Gait exam (Neuro): Assisted gait required walker Motor exam (neuro): 5/5 motor strength present throughout Extrem: General: no pedal edema Objective Data Vital Signs Vital Signs: Vital Signs - 24 hr 12/24/20 21:36 12/25/20 05:53 12/25/20 14:00 Temperature 97.7 F 97.0 F L 97.7 F Pulse Rate 73 65 63 Respiratory Rate 16 16 16 Blood Pressure 123/47 L 154/61 H 114/64 Pulse Oximetry 97 98 99 Intake/Output Intake/Output: Intake & Output 12/22/20 12/23/20 12/24/20 12/25/20 23:59 23:59 23:59 23:59 Intake Total 3225 2560 2870 2250 Output Total 1750 1950 2900 1400 Balance 1475 610 -30 850 Meds/Results Medications: Active Medications Generic Name Dose Route Start Last Admin Trade Name Freq PRN Reason Stop Dose Admin Acetaminophen 650 mg 12/21/20 22:05 12/23/20 20:00 Acetaminophen 325 Mg Tablet PO 650 mg Q4H PRN
[2020-12-25 19:33] VITALS: BP 156/74; PULSE 73; RESP 16; TEMP 36.6; O2SAT 99
[2020-12-25] MEDS: CARBIDOPA/LEVODOPA 25/100 MG CR TABLET 1 TABLET PO (20:44)
[2020-12-26 05:36] VITALS: BP 156/95; PULSE 64; RESP 14; TEMP 36.4; O2SAT 90
[2020-12-26] MEDS: CARBIDOPA/LEVODOPA 25/100 MG TABLET 2 TABLET PO ×2 (07:59→11:29)
[2020-12-26 08:00] VITALS: PULSE 64; RESP 14; O2SAT 96
[2020-12-26] MEDS: CHOLECALCIFEROL 1,000 UNITS TABLET 5000 UNITS PO (08:20)
[2020-12-26] MEDS: valACYclovir HCL 500 MG TABLET PO (08:20)
[2020-12-26] MEDS: PARoxetine 20 MG TABLET 40 MG PO (08:20)
[2020-12-26] MEDS: ASCORBIC ACID 500 MG TABLET PO (08:20)
[2020-12-26] MEDS: FOLIC ACID 0.4 MG TABLET PO (08:21)
[2020-12-26] MEDS: CYANOCOBALAMIN 1,000 MCG TABLET 1000 MCG BY MOUTH (08:22)
[2020-12-26] MEDS: POTASSIUM CHLORIDE 20 MEQ TABLET 40 MEQ PO (08:39)
[2020-12-26 10:05] VITALS: O2SAT 96
[2020-12-26] MEDS: ACETAMINOPHEN 325 MG TABLET 650 MG PO (11:25)
[2020-12-26] MEDS: DEXTROSE 5%/0.45% SOD CHL 1,000 ML 65 ML IV CONT (11:35)
--- NOTE | 2020-12-26 13:35 | PC.NURSE ---
Spoke with , Robin, regarding the safe transfer of patient from wheelchair into the car when he arrives in a few minutes for discharge. It was explained to him that the transfer from the wheelchair to the car would be too dangerous for staff to perform, will he have anyone to help him transfer her? Robin states, Don't you have somebody who can bring her down to the doors? He was told, Yes, but I don't want the staff or your to get hurt during the transfer. Robin, stated emphatically and without hesitation, interrupting me, Don't worry about it. I've been doing it for years. Don't worry about. I'll do it myself. 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
--- NOTE | 2021-02-01 17:48 | PM.DS ---
DS: Admitting Diagnosis Admitting Diagnosis Admitting Diagnosis: (1) Altered mental status: (2) Abnormal urinalysis: (3) Dementia: (4) Chronic indwelling Flores catheter: (5) Renal failure: (6) Normocytic anemia: DS: Discharge Diagnosis Discharge Diagnosis (1) UTI (urinary tract infection): Qualifiers: Encounter type: initial encounter Indwelling urinary catheter type: cystostomy catheter Urinary tract infection type: catheter-associated UTI Qualified Code(s): T83.510A - Infection and inflammatory reaction due to cystostomy catheter, initial encounter; N39.0 - Urinary tract infection, site not specified Code(s): N39.0 - Urinary tract infection, site not specified Status: Acute Assessment and Plan: Patient treated for urinary tract infection Urine analysis grew Proteus mirabilis (2) Chronic indwelling Flores catheter: Code(s): Z97.8 - Presence of other specified devices Status: Acute Assessment and Plan: status post exchange (3) Renal failure: Qualifiers: Renal failure chronicity: unspecified chronicity Qualified Code(s): N19 - Unspecified kidney failure Code(s): N19 - Unspecified kidney failure Status: Acute Assessment and Plan: Likely secondary to pre renal causes Improved with IV fluids (4) Dementia: Code(s): F03.90 - Unspecified dementia without behavioral disturbance Status: Chronic Assessment and Plan: Patient was continued on her home meds (5) Normocytic anemia: Code(s): D64.9 - Anemia, unspecified Status: Chronic Assessment and Plan: Anemia of chronic disease (6) Multiple myeloma: Code(s): C90.00 - Multiple myeloma not having achieved remission Status: Acute Assessment and Plan: with no plans for chemotherapy in the near future (7) Parkinson disease: Code(s): G20 - Parkinson's disease Status: Acute Assessment and Plan: Continue with levodopa/ carbidopa DS: Summary Hospital Course Reason for hospitalization: Altered mental status Hospital Course: Adia is a 70-year-old female with past medical history significant for Parkinson's, Parkinson's dementia, multiple myeloma chronic kidney failure , chronic indwelling suprapubic catheter. She was brought to the emergency due to altered mental status, patient was found to have urinary tract infection. She was found to have Proteus Mirabillis growing in the urine cx. She was kept on her home medications. She received IV fluid hydration and her kidney function normalized to her baseline. She participated with physical therapy and occupational therapy in therapy sessions. [facility] stead in taking her home back home. She had uneventful hospital stay. No complications. Procedures performed: None Consults obtained: None Status at Discharge Cognitive/behavioral status at discharge: AAOX2 Functional status at discharge: uses cane/walker Overall status at discharge: patient is progressing back to baseline Time Spent with Patient Time attestation: Total time spent providing and/or coordinating discharge services: Time spent: Greater than 30 minutes Exam Narrative: Exam Narrative: Chronically ill looking Const: General: comfortable, no acute distress, well developed, alert and awake Nutritional Appearance: underweight Orientation/consciousness: oriented to person and oriented to place HENMT: Head: normal to inspection, normocephalic and atraumatic Ears: hearing grossly normal bilaterally Face and sinus: normal facial exam Eyes: General: appearance normal, both eyes and all related structures Pupils: Equal, round and reactive pupils present EOM: EOMs intact bilaterally Neck: Neck: full ROM, no lymphadenopathy and no JVD Thyroid: thyroid normal Lymphatic: no lymphadenopathy noted Resp: Effort & Inspection: normal respiratory effort and abl
--- NOTE | 2021-02-21 16:45 | PM.IMPN ---
Progress Note: A&P Assessment and Plan (1) UTI (urinary tract infection): Qualifiers: Encounter type: initial encounter Indwelling urinary catheter type: cystostomy catheter Urinary tract infection type: catheter-associated UTI Qualified Code(s): T83.510A - Infection and inflammatory reaction due to cystostomy catheter, initial encounter; N39.0 - Urinary tract infection, site not specified Code(s): N39.0 - Urinary tract infection, site not specified Status: Acute Assessment and Plan: Patient is currently on Rocephin Will deescalate antibiotics once urine analysis culture adding Tivicay goldman sensitivities back (2) Altered mental status: Qualifiers: Altered mental status type: unspecified Qualified Code(s): R41.82 - Altered mental status, unspecified Code(s): R41.82 - Altered mental status, unspecified Status: Acute Assessment and Plan: Improved Likely secondary to toxic encephalopathy secondary to sepsis secondary to urinary tract infection (3) Chronic indwelling Flores catheter: Code(s): Z97.8 - Presence of other specified devices Status: Acute Assessment and Plan: Status post exchange (4) Dementia: Code(s): F03.90 - Unspecified dementia without behavioral disturbance Status: Chronic Assessment and Plan: Supportive care (5) Multiple myeloma: Code(s): C90.00 - Multiple myeloma not having achieved remission Status: Acute Assessment and Plan: On pomalidomide Will follow-up in outpatient setting (6) Parkinson disease: Code(s): G20 - Parkinson's disease Status: Acute Assessment and Plan: On carbidopa levodopa Subjective Date/time seen: 02/21/21 16:45 Patient seen and examined on December 24 this is a late entry note. Objective Data Meds/Results Radiology Results: ITS Impressions Cervical Spine CT 12/21/20 17:31 IMPRESSION: 1. No acute intracranial findings or cervical fracture. 2. Advanced cervical spondylosis. 3. Age-related intracranial findings. Head CT 12/21/20 17:31 IMPRESSION: 1. No acute intracranial findings or cervical fracture. 2. Advanced cervical spondylosis. 3. Age-related intracranial findings. Chest X-Ray 12/21/20 17:38 IMPRESSION: No acute cardiopulmonary findings. Quality VTE Prophylaxis VTE prophylaxis: pharmacologic ordered
--- NOTE | 2021-04-01 01:20 | PM.IMPN ---
Progress Note: A&P Assessment and Plan (1) UTI (urinary tract infection): Qualifiers: Encounter type: initial encounter Indwelling urinary catheter type: cystostomy catheter Urinary tract infection type: catheter-associated UTI Qualified Code(s): T83.510A - Infection and inflammatory reaction due to cystostomy catheter, initial encounter; N39.0 - Urinary tract infection, site not specified Code(s): N39.0 - Urinary tract infection, site not specified Status: Acute Assessment and Plan: Patient is currently on Rocephin Will deescalate antibiotics once urine analysis culture adding Tivicay goldman sensitivities back (2) Altered mental status: Qualifiers: Altered mental status type: unspecified Qualified Code(s): R41.82 - Altered mental status, unspecified Code(s): R41.82 - Altered mental status, unspecified Status: Acute Assessment and Plan: Improved Likely secondary to toxic encephalopathy secondary to sepsis secondary to urinary tract infection (3) Chronic indwelling Flores catheter: Code(s): Z97.8 - Presence of other specified devices Status: Acute Assessment and Plan: Status post exchange (4) Dementia: Code(s): F03.90 - Unspecified dementia without behavioral disturbance Status: Chronic Assessment and Plan: Supportive care (5) Multiple myeloma: Code(s): C90.00 - Multiple myeloma not having achieved remission Status: Acute Assessment and Plan: On pomalidomide Will follow-up in outpatient setting (6) Parkinson disease: Code(s): G20 - Parkinson's disease Status: Acute Assessment and Plan: On carbidopa levodopa Additional Plan Date of service was 12/21/2020 at 21:15 hrs. Subjective Date/time seen: 04/01/21 01:20 patient was seen and examined on December 24, 2020 this is a late entry note Review of Systems Review of Systems: ROS unobtainable: Yes unobtainable due to medical condition (Advanced dementia) Exam Narrative: Exam Narrative: Chronically ill looking Const: General: comfortable, no acute distress, well developed, alert, awake, Physically active, ill appearing chronically and other (Delirious.) Nutritional Appearance: cachectic, thin and underweight Orientation/consciousness: oriented to person, oriented to place, patient oriented x3 and Other orientation findings (nonverbal+) Limitations: altered mental status (Likely dementia.) HENMT: Head: normal to inspection, normocephalic, atraumatic and other (Bitemporal muscle wasting.) Ears: hearing grossly normal bilaterally General nose exam: Normal external nose present Face and sinus: normal facial exam Mouth: Yes Normal oral and palatal mucosa present and Yes oropharynx normal Eyes: General: appearance normal, both eyes and all related structures Pupils: Equal, round and reactive pupils present EOM: EOMs intact bilaterally Neck: Neck: full ROM, no lymphadenopathy, supple, no JVD and other (bruising noted on left side of neck+ ) Thyroid: thyroid normal Lymphatic: no lymphadenopathy noted and lymphadenopathy not noted Resp: Effort & Inspection: normal respiratory effort and able to speak in complete sentences Auscultation: clear to auscultation bilaterally Cardio: Jugular venous distension: no JVD Rate: regular rate Rhythm: regular rhythm Heart sounds: S1 normal heart sound present, S2 normal heart sound present and no murmurs GI: Inspection: other (Suprapubic urinary catheter++ ) Auscultation: normal bowel sounds : General: Yes deferred and Yes other (Suprapubic catheter ) Skin: General skin exam: ecchymosis (diffuse bruising on lower extremities b/l+++ ) Lesions: no lesions Rashes: no rashes Wounds: no wounds Neuro: General: oriented to person, oriented to place, patient oriented x3, CN's II-XI intact bilaterally, Unable to assess gait and other (delirious.) Cranial nerves: Yes CN's II-XII intact bilaterally a
== END 2020-12-26 15:00 | disposition home health service (06) | DRG 699 ==
LOC: ANHED 15:51 → ANH3MED 20:10
PROVIDERS: Admitting Provider Family Medicine; Emergency Provider Emergency Medicine; PCP Internal Medicine; Visit Provider Internal Medicine
DX: T83.510A Infection and inflammatory reaction due to cystostomy catheter, initial encounter (principal); N39.0 Urinary tract infection, site not specified; C90.00 Multiple myeloma not having achieved remission; D64.9 Anemia, unspecified; G20 Parkinson's disease; F02.80 Dementia in other diseases classified elsewhere, unspecified severity, without behavioral disturbance, psychotic disturbance, mood disturbance, and anxiety; N19 Unspecified kidney failure; Z28.21 Immunization not carried out because of patient refusal; Z79.899 Other long term (current) drug therapy; Z88.2 Allergy status to sulfonamides; Z88.8 Allergy status to other drugs, medicaments and biological substances
CPT/HCPCS: 36415; 51702; 70450; 71045; 72125; 80048; 80053; 80307; 81001; 82607; 82746; 84439; 84443; 84480; 85025; 87077; 87086; 87088; 87186; 96361; 96365; 96372; 96375; 97110; 97161; 97166; 97530; 99285; A9270; G0378; J0131; J0696; J1650; J1940; J7030

== ENCOUNTER 2021-01-01 14:06 | Observation (INO) | payer MEDICARE, SELFPAY ==
[2021-01-01] VITALS (10 sets, daily range): BP systolic 102–176; BP diastolic 58–89; PULSE 66–75; RESP 14–21; TEMP 36.6–36.7; O2SAT 95–100
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
--- NOTE | 2021-01-01 14:54 | PC.NURSE ---
SPOKE WITH HELEN WITH [facility] ABOUT PT HOME HEALTH CAREGIVER. HELEN TO CONTACT CAREGIVER, CARLOS, AND HAVE HER GIVE US A CALL BACK REGARDING CLIENT INTERACTION TODAY.
[2021-01-01 15:36] LABS: Basophils Percent Auto 0.4 % (0.2-1.2); Eosinophils Absolute Auto 0.2 K/mm3 (0-0.3); Eosinophils Percent Auto 3.2 % (0-4.4); Hematocrit 31.8 % (37.0-47.0); Hemoglobin 10.5 g/dL (12.0-15.0); Immature Granulocyte Absolute 0.13 K/mm3 (0.00-0.031); Immature Granulocyte Percent A 1.8 % (0-0.5); Lymphocytes Absolute Auto 1.21 K/mm3 (0.9-3.2); Lymphocytes Percent Auto 16.9 % (18.3-44.2); Mean Corpuscular Hemoglobin 31.6 pg (26-34); Mean Corpuscular Volume 95.8 fl (80-100); Mean Platelet Volume 8.8 fl (7.4-10.4); Monocytes Absolute Auto 0.8 K/mm3 (0.1-0.6); Monocytes Percent Auto 11.7 % (2.6-8.5); Neutrophils Absolute Auto 4.7 K/mm3 (1.3-6.7); Nucleated Red Blood Cells Perc 0.3 % (0.0-0.2); Platelet Count Result 181 k/mm3 (150-375); Red Blood Count 3.32 M/mm3 (4.2-5.4); Red Cell Distribution Width 15.9 % (11.5-14.5); White Blood Count 7.2 K/mm3 (4.5-10.0)
[2021-01-01 15:45] LABS: INR 1.1; Prothrombin Time 14.8 Seconds (11.1-14.7)
[2021-01-01 15:46] LABS: Partial Thromboplastin Time 26.9 SECONDS (22.3-36.8)
[2021-01-01 15:50] LABS: Anion Gap 4 mmol/L (8-16); Blood Urea Nitrogen 18 mg/dL (7-17); Calcium 8.5 mg/dL (8.4-10.2); Carbon Dioxide 25 mmol/L (22-30); Chloride 106 mmol/L (98-107); Estimated Glomerular Filt Rate > 60; Glucose 95 mg/dL (65-105); Potassium 3.7 mmol/L (3.4-5.0); Sodium 135 mmol/L (137-145)
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
[2021-01-01 17:40] LABS: Add Urine Microscopic? YES; Appearance Urine Clear (Clear); Bacteria Urine Trace /hpf; Bilirubin Urine Negative (Negative); Blood Urine 1+ (Negative); Color Urine Colorless (Yellow); Glucose Urine UA Negative (Negative); Ketones Urine Negative (Negative); Leukocyte Esterase Ur Negative LEU/UL (Negative); Mucus Urine Rare /lpf; Nitrate Urine Negative (Negative); Protein Urine Negative (Negative); Squamous Epithelial Cell Urine Rare /hpf (Few); Urobilinogen Urine Negative mg/dL (<2.0); WBC Urine 0-3 /hpf
[2021-01-01 17:48] LABS: Specific Grav Ur > 1.060 (1.001-1.035)
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
--- NOTE | 2021-01-01 18:56 | PC.NURSE ---
C-COLLAR REMOVED AFTER CT RESULTS OBTAINED DUE TO PT PULLING AT COLLAR AND APPEARING UNCOMFORTABLE.
--- NOTE | 2021-01-01 19:30 | ADMGEN ---
This patient, Adia Pereyra [facility], was admitted to 3 Medical Room 345-01. Patient/family oriented to hospital policies and general routines including ID bracelet, bed and alarms, visiting hours, pain management, procedures, bathroom and other care routines, personal items, smoking policy, room service/diet, and visiting hours. Information on how to activate the Rapid Response Team has been discussed. Patient/Family are encouraged to report perceived risks to care and to ask questions if they do not understand what they are told or what they should do.
[2021-01-01] MEDS: HEPARIN SODIUM 5,000 UNITS/ML VIAL 5000 UNITS SUB-Q (20:22)
[2021-01-01] MEDS: CARBIDOPA/LEVODOPA 25/100 MG TABLET 2 TABLET PO (20:22)
[2021-01-01] MEDS: LATANOPROST 0.005% OP SOLN 2.5 ML BTL 1 DROP EACH EYE (20:22)
[2021-01-01] MEDS: AMOXICILLIN 500 MG CAPSULE PO (21:38)
[2021-01-01] MEDS: valACYclovir HCL 500 MG TABLET PO (21:38)
[2021-01-01] MEDS: CARBIDOPA/LEVODOPA 25/100 MG CR TABLET 1 TABLET PO (21:39)
[2021-01-02] MEDS: ACETAMINOPHEN 325 MG TABLET 650 MG PO (00:57)
[2021-01-02 05:23] VITALS: BP 162/56; PULSE 60; RESP 14; TEMP 36.6; O2SAT 99
[2021-01-02] MEDS: CHOLECALCIFEROL 1,000 UNITS TABLET 5000 UNITS PO (08:45)
[2021-01-02] MEDS: valACYclovir HCL 500 MG TABLET PO ×2 (08:46→17:02)
[2021-01-02] MEDS: CYANOCOBALAMIN 1,000 MCG TABLET 1000 MCG PO (08:46)
[2021-01-02] MEDS: FOLIC ACID 0.4 MG TABLET PO (08:46)
[2021-01-02] MEDS: PARoxetine 20 MG TABLET 40 MG PO (08:46)
[2021-01-02] MEDS: ASCORBIC ACID 500 MG TABLET PO (08:46)
[2021-01-02] MEDS: CARBIDOPA/LEVODOPA 25/100 MG TABLET 2 TABLET PO ×4 (08:46→20:15)
[2021-01-02] MEDS: POTASSIUM CHLORIDE 20 MEQ TABLET.ER PO (08:46)
[2021-01-02] MEDS: AMOXICILLIN 500 MG CAPSULE PO ×2 (08:46→20:15)
--- NOTE | 2021-01-02 10:07 | PC.NURSE ---
Addendum entered by Sparkle Stanford RN 01/02/21 10:08: Kiki, pt's daughter, stated that Kendrick Arias, Kiki's , can be updated or contacted if Kiki can not be reached. Kendrick's number is [phone] Original Note: Kiki, pt s daughter, stated that Kendrick Arias, Kiki s , can be updated or contacted if Kiki can not be reached. Kendrick''
[2021-01-02 14:00] VITALS: BP 140/68; PULSE 68; RESP 14; TEMP 36.7; O2SAT 100
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
[2021-01-02 20:01] VITALS: BP 110/68; PULSE 68; RESP 14; TEMP 37; O2SAT 99
[2021-01-02] MEDS: LATANOPROST 0.005% OP SOLN 2.5 ML BTL 1 DROP EACH EYE (20:15)
[2021-01-02] MEDS: HEPARIN SODIUM 5,000 UNITS/ML VIAL 5000 UNITS SUB-Q (20:15)
[2021-01-02] MEDS: CARBIDOPA/LEVODOPA 25/100 MG CR TABLET 1 TABLET PO (20:16)
[2021-01-03 05:43] VITALS: BP 112/68; PULSE 70; RESP 14; TEMP 36.7; O2SAT 98
[2021-01-03] MEDS: POTASSIUM CHLORIDE 20 MEQ TABLET.ER PO (09:28)
[2021-01-03] MEDS: AMOXICILLIN 500 MG CAPSULE PO ×2 (09:28→20:36)
[2021-01-03] MEDS: CARBIDOPA/LEVODOPA 25/100 MG TABLET 2 TABLET PO ×4 (09:28→20:36)
[2021-01-03] MEDS: CYANOCOBALAMIN 1,000 MCG TABLET 1000 MCG PO (09:29)
[2021-01-03] MEDS: FOLIC ACID 0.4 MG TABLET PO (09:29)
[2021-01-03] MEDS: CHOLECALCIFEROL 1,000 UNITS TABLET 5000 UNITS PO (09:29)
[2021-01-03] MEDS: HEPARIN SODIUM 5,000 UNITS/ML VIAL 5000 UNITS SUB-Q ×2 (09:29→20:37)
[2021-01-03] MEDS: ASCORBIC ACID 500 MG TABLET PO (09:29)
[2021-01-03] MEDS: valACYclovir HCL 500 MG TABLET PO ×2 (09:29→16:41)
[2021-01-03] MEDS: PARoxetine 20 MG TABLET 40 MG PO (09:29)
[2021-01-03 14:00] VITALS: BP 99/82; PULSE 67; RESP 16; TEMP 36.1; O2SAT 100
[2021-01-03 16:05] VITALS: BP 162/90
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
[2021-01-03 19:39] VITALS: BP 150/80; PULSE 57; RESP 12; TEMP 37.1; O2SAT 100
[2021-01-03] MEDS: CARBIDOPA/LEVODOPA 25/100 MG CR TABLET 1 TABLET PO (20:36)
[2021-01-03] MEDS: LATANOPROST 0.005% OP SOLN 2.5 ML BTL 1 DROP EACH EYE (20:37)
[2021-01-04 06:00] VITALS: BP 148/79; PULSE 90; RESP 14; TEMP 36.8; O2SAT 97
[2021-01-04] MEDS: CARBIDOPA/LEVODOPA 25/100 MG TABLET 2 TABLET PO ×4 (08:22→21:17)
[2021-01-04] MEDS: POTASSIUM CHLORIDE 20 MEQ TABLET.ER PO (08:22)
[2021-01-04] MEDS: PARoxetine 20 MG TABLET 40 MG PO (08:22)
[2021-01-04] MEDS: HEPARIN SODIUM 5,000 UNITS/ML VIAL 5000 UNITS SUB-Q ×2 (08:22→21:17)
[2021-01-04] MEDS: AMOXICILLIN 500 MG CAPSULE PO ×2 (08:23→21:17)
[2021-01-04] MEDS: FOLIC ACID 0.4 MG TABLET PO (08:23)
[2021-01-04] MEDS: CYANOCOBALAMIN 1,000 MCG TABLET 1000 MCG PO (08:23)
[2021-01-04] MEDS: CHOLECALCIFEROL 1,000 UNITS TABLET 5000 UNITS PO (08:23)
[2021-01-04] MEDS: ASCORBIC ACID 500 MG TABLET PO (08:23)
[2021-01-04] MEDS: valACYclovir HCL 500 MG TABLET PO ×2 (08:23→17:15)
[2021-01-04 12:05] VITALS: BMI 17.8
[2021-01-04 12:08] VITALS: BMI 17.8
--- NOTE | 2021-01-04 13:19 | PCNSR ---
On 01/04/21, the student, Kate Easton, provided care and completed [facility] documentation on this patient. I have reviewed the student's documentation and agree with the findings.
[2021-01-04 15:03] VITALS: BP 150/65; PULSE 56; RESP 16; TEMP 36.5; O2SAT 100
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
--- NOTE | 2021-01-04 15:48 | PHAR ---
HOME MED VERIFIED = ACCREDO [id number] POMALYST 2MG 1 CAP Q OTHER DAY
[2021-01-04 18:21] LABS: SARS-CoV-2 RNA PCR Negative
[2021-01-04] MEDS: LATANOPROST 0.005% OP SOLN 2.5 ML BTL 1 DROP EACH EYE (21:17)
[2021-01-04] MEDS: CARBIDOPA/LEVODOPA 25/100 MG CR TABLET 1 TABLET PO (21:19)
[2021-01-04 21:55] VITALS: BP 117/47; PULSE 61; RESP 16; TEMP 36.2; O2SAT 98
[2021-01-05 06:00] VITALS: BP 144/58; PULSE 62; RESP 16; TEMP 36.1; O2SAT 94
[2021-01-05] MEDS: CHOLECALCIFEROL 1,000 UNITS TABLET 5000 UNITS PO (08:06)
[2021-01-05] MEDS: PARoxetine 20 MG TABLET 40 MG PO (08:07)
[2021-01-05] MEDS: CARBIDOPA/LEVODOPA 25/100 MG TABLET 2 TABLET PO ×4 (08:07→21:40)
[2021-01-05] MEDS: AMOXICILLIN 500 MG CAPSULE PO ×2 (08:07→21:40)
[2021-01-05] MEDS: FOLIC ACID 0.4 MG TABLET PO (08:08)
[2021-01-05] MEDS: POTASSIUM CHLORIDE 20 MEQ TABLET.ER PO (08:08)
[2021-01-05] MEDS: CYANOCOBALAMIN 1,000 MCG TABLET 1000 MCG PO (08:08)
[2021-01-05] MEDS: ASCORBIC ACID 500 MG TABLET PO (08:08)
[2021-01-05] MEDS: valACYclovir HCL 500 MG TABLET PO ×2 (08:08→16:30)
[2021-01-05] MEDS: HEPARIN SODIUM 5,000 UNITS/ML VIAL 5000 UNITS SUB-Q ×2 (08:08→21:40)
[2021-01-05 14:00] VITALS: BP 116/52; PULSE 66; RESP 18; TEMP 35.7; O2SAT 96
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
[2021-01-05] MEDS: LATANOPROST 0.005% OP SOLN 2.5 ML BTL 1 DROP EACH EYE (21:39)
[2021-01-05] MEDS: CARBIDOPA/LEVODOPA 25/100 MG CR TABLET 1 TABLET PO (21:52)
[2021-01-05 22:00] VITALS: BP 153/79; PULSE 66; RESP 16; TEMP 36; O2SAT 100
[2021-01-06] MEDS: ACETAMINOPHEN 325 MG TABLET 650 MG PO (02:09)
[2021-01-06 06:00] VITALS: BP 149/74; PULSE 62; RESP 16; TEMP 36.2; O2SAT 96
[2021-01-06] MEDS: POTASSIUM CHLORIDE 20 MEQ TABLET.ER PO (08:13)
[2021-01-06] MEDS: CHOLECALCIFEROL 1,000 UNITS TABLET 5000 UNITS PO (08:13)
[2021-01-06] MEDS: valACYclovir HCL 500 MG TABLET PO ×2 (08:13→17:00)
[2021-01-06] MEDS: CYANOCOBALAMIN 1,000 MCG TABLET 1000 MCG PO (08:13)
[2021-01-06] MEDS: PARoxetine 20 MG TABLET 40 MG PO (08:13)
[2021-01-06] MEDS: FOLIC ACID 0.4 MG TABLET PO (08:13)
[2021-01-06] MEDS: CARBIDOPA/LEVODOPA 25/100 MG TABLET 2 TABLET PO ×4 (08:13→20:28)
[2021-01-06] MEDS: AMOXICILLIN 500 MG CAPSULE PO ×2 (08:13→20:28)
[2021-01-06] MEDS: ASCORBIC ACID 500 MG TABLET PO (08:13)
[2021-01-06] MEDS: HEPARIN SODIUM 5,000 UNITS/ML VIAL 5000 UNITS SUB-Q ×2 (08:14→20:28)
--- NOTE | 2021-01-06 12:06 | P.DS_ITS ---
DS: Summary Time Spent with Patient Time attestation: Total time spent providing and/or coordinating discharge ser vices: DS: Data Data Completed and Pending Labs on day of discharge: Labs from last 24 hours 01/06/21 06:12 SARS-CoV-2 RNA (RT-PCR) Pending Discharge Plan Discharge Attending physician on discharge: Jimi Red V. Discharging Clinician: Jimi Red V. Patient Disposition: SNF Activity: as tolerated Diet: regular Patient Instructions: Pain Management (DC) Stand Alone Forms: General Discharge Information Follow-up/Referrals: Rajat,Harlan Krishna MD [Primary Care Provider] - 2 Weeks Discharge Medications: Continued carbidopa-levodopa 50-200 mg tablet extended release 1 tablet PO HS RF: 0 carbidopa-levodopa 25-100 mg tablet 2 tablet PO QID RF: 0 valacyclovir 500 mg tablet 500 mg PO BID RF: 0 methenamine hippurate 1 gram tablet 1 g PO BID RF: 0 potassium chloride 20 mEq tablet,ER particles/crystals 20 meq PO DAILY RF: 0 ascorbic acid (vitamin C) 500 mg Tablet,Chewable 500 mg PO DAILY RF: 0 paroxetine HCl 40 mg tablet 40 mg PO DAILY RF: 0 pomalidomide 2 mg Capsule 2 mg PO DAILY RF: 0 folic acid 400 mcg Tablet 0.4 mg PO DAILY RF: 0 cyanocobalamin (vitamin B-12) 1,000 mcg Tablet, Sublingual 1,000 mcg SUBLINGUAL DAILY RF: 0 cholecalciferol (vitamin D3) 125 mcg (5,000 unit) Tablet 125 mcg PO DAILY RF: 0 Lumigan 0.01 % drops 1 drp EACH EYE HS RF: 0 amoxicillin 500 mg capsule 500 mg PO Q12H Qty: 10 RF: 0 acetaminophen 500 mg Tablet 500 mg PO Q6H PRN (Reason: Pain) 5 Days RF: 0 Date of admission: 01/01/21 17:44 Primary Care Provider: Rajat*Harlan Kaiser Admitting Provider: Aidan Henao Attending physician on admission: Aidan Henao Condition: Stable Quality VTE Prophylaxis VTE prophylaxis: pharmacologic ordered
[2021-01-06 14:00] VITALS: BP 149/74; PULSE 61; RESP 14; TEMP 36.3; O2SAT 97
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
[2021-01-06 17:59] LABS: SARS-CoV-2 RNA PCR Negative
[2021-01-06] MEDS: LATANOPROST 0.005% OP SOLN 2.5 ML BTL 1 DROP EACH EYE (20:28)
[2021-01-06] MEDS: CARBIDOPA/LEVODOPA 25/100 MG CR TABLET 1 TABLET PO (20:28)
[2021-01-06 20:29] VITALS: BP 146/74; PULSE 68; RESP 18; TEMP 36.4; O2SAT 98
[2021-01-07 05:06] VITALS: BP 140/65; PULSE 68; RESP 18; TEMP 36.1; O2SAT 100
[2021-01-07] MEDS: AMOXICILLIN 500 MG CAPSULE PO ×2 (08:05→20:24)
[2021-01-07] MEDS: CARBIDOPA/LEVODOPA 25/100 MG TABLET 2 TABLET PO ×4 (08:05→20:24)
[2021-01-07] MEDS: CHOLECALCIFEROL 1,000 UNITS TABLET 5000 UNITS PO (08:05)
[2021-01-07] MEDS: ASCORBIC ACID 500 MG TABLET PO (08:06)
[2021-01-07] MEDS: PARoxetine 20 MG TABLET 40 MG PO (08:06)
[2021-01-07] MEDS: POTASSIUM CHLORIDE 20 MEQ TABLET.ER PO (08:06)
[2021-01-07] MEDS: valACYclovir HCL 500 MG TABLET PO ×2 (08:06→18:10)
[2021-01-07] MEDS: CYANOCOBALAMIN 1,000 MCG TABLET 1000 MCG PO (08:06)
[2021-01-07] MEDS: FOLIC ACID 0.4 MG TABLET PO (08:06)
[2021-01-07 09:55] LABS: Hematocrit 31.5 % (37.0-47.0); Mean Corpuscular HGB Conc 31.7 g/dl (32-36); Mean Corpuscular Hemoglobin 31.2 pg (26-34); Mean Corpuscular Volume 98.1 fl (80-100); Platelet Count Result 243 k/mm3 (150-375); Red Blood Count 3.21 M/mm3 (4.2-5.4); Red Cell Distribution Width 16.6 % (11.5-14.5); White Blood Count 4.2 K/mm3 (4.5-10.0)
[2021-01-07 10:13] LABS: Anion Gap 2 mmol/L (8-16); Blood Urea Nitrogen 17 mg/dL (7-17); Calcium 8.6 mg/dL (8.4-10.2); Carbon Dioxide 26 mmol/L (22-30); Chloride 107 mmol/L (98-107); Estimated CRCL calculation 45 ml/min; Estimated Glomerular Filt Rate > 60; Glucose 86 mg/dL (65-105); Potassium 4.4 mmol/L (3.4-5.0); Sodium 135 mmol/L (137-145)
[2021-01-07] MEDS: HEPARIN SODIUM 5,000 UNITS/ML VIAL 5000 UNITS SUB-Q ×2 (12:26→20:24)
[2021-01-07 14:00] VITALS: BP 193/76; PULSE 71; RESP 18; TEMP 37; O2SAT 100
[2021-01-07] MEDS: cloNIDine 0.1 MG/24 HR PATCH 1 PATCH TRANSDERM (15:47)
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
[2021-01-07 18:26] VITALS: BP 123/59
[2021-01-07] MEDS: LATANOPROST 0.005% OP SOLN 2.5 ML BTL 1 DROP EACH EYE (20:24)
[2021-01-07] MEDS: CARBIDOPA/LEVODOPA 25/100 MG CR TABLET 1 TABLET PO (20:26)
[2021-01-07 21:27] VITALS: BP 148/86; PULSE 63; RESP 18; TEMP 36.6; O2SAT 96
[2021-01-08 05:26] VITALS: BP 131/82; PULSE 69; RESP 17; TEMP 36.6; O2SAT 98
[2021-01-08] MEDS: CHOLECALCIFEROL 1,000 UNITS TABLET 5000 UNITS PO (08:01)
[2021-01-08] MEDS: FOLIC ACID 0.4 MG TABLET PO (08:01)
[2021-01-08] MEDS: PARoxetine 20 MG TABLET 40 MG PO (08:01)
[2021-01-08] MEDS: AMOXICILLIN 500 MG CAPSULE PO ×2 (08:02→23:52)
[2021-01-08] MEDS: valACYclovir HCL 500 MG TABLET PO ×2 (08:02→16:41)
[2021-01-08] MEDS: CARBIDOPA/LEVODOPA 25/100 MG TABLET 2 TABLET PO ×4 (08:02→23:16)
[2021-01-08] MEDS: ASCORBIC ACID 500 MG TABLET PO (08:02)
[2021-01-08] MEDS: cloNIDine 0.1 MG/24 HR PATCH 1 PATCH TRANSDERM (08:02)
[2021-01-08] MEDS: POTASSIUM CHLORIDE 20 MEQ TABLET.ER PO (08:02)
[2021-01-08] MEDS: CYANOCOBALAMIN 1,000 MCG TABLET 1000 MCG PO (08:02)
--- NOTE | 2021-01-08 11:13 | PCNFU ---
Nutrition Follow-Up Complete: Inability to manage self care related to dementia as evidenced by assisted facility referral and patient inability to answer questions accurately. Goal: Patient to meet estimated nutritional needs. Progressing towards current goal. Pt current nutrition is a regular diet. Last recorded weight is 51.6 kg. Bowel Motility: + BM 01/05 Labs Reviewed: Hgb 10.0, Hct 31.5, Na 135 Meds Noted: Vitamin C, Vitamin D, Amoxil capsule, Kcl, Vitamin B-12, Folic acid, Xalatan, Heparin Sodium, Valtrex Additional Notes: Spoke with patients nurse today. Patient is still confused. She is hopefully being discharged to SNF later today or tomorrow. Patient is not happy about her placement and is pushing away meals today. Overall intake has been 50-100% of meals. Monitor patients labs, medications, weight, and oral intake every 5 days.
--- NOTE | 2021-01-08 11:48 | PCNSR ---
On 01/08/21, the student,Kate Easton, provided care and completed [facility] documentation on this patient. I have reviewed the student's documentation and agree with the findings.
[2021-01-08 13:21] LABS: SARS-CoV-2 RNA PCR Negative
[2021-01-08 13:53] VITALS: BMI 10.0
[2021-01-08 14:00] VITALS: BP 91/45; PULSE 64; RESP 18; TEMP 36.9; O2SAT 97
[2021-01-08 16:39] VITALS: BP 150/79
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
[2021-01-08 20:27] VITALS: BP 139/70; PULSE 90; RESP 14; TEMP 36.9; O2SAT 94
[2021-01-08] MEDS: LATANOPROST 0.005% OP SOLN 2.5 ML BTL 1 DROP EACH EYE (23:16)
[2021-01-08] MEDS: HEPARIN SODIUM 5,000 UNITS/ML VIAL 5000 UNITS SUB-Q (23:16)
[2021-01-08] MEDS: CARBIDOPA/LEVODOPA 25/100 MG CR TABLET 1 TABLET PO (23:16)
[2021-01-09 06:00] VITALS: BP 146/84; PULSE 64; RESP 16; TEMP 37.1; O2SAT 99
[2021-01-09] MEDS: CHOLECALCIFEROL 1,000 UNITS TABLET 5000 UNITS PO (08:11)
[2021-01-09] MEDS: ASCORBIC ACID 500 MG TABLET PO (08:11)
[2021-01-09] MEDS: AMOXICILLIN 500 MG CAPSULE PO ×2 (08:11→21:18)
[2021-01-09] MEDS: CARBIDOPA/LEVODOPA 25/100 MG TABLET 2 TABLET PO ×4 (08:11→21:18)
[2021-01-09] MEDS: PARoxetine 20 MG TABLET 40 MG PO (08:13)
[2021-01-09] MEDS: CYANOCOBALAMIN 1,000 MCG TABLET 1000 MCG PO (08:13)
[2021-01-09] MEDS: POTASSIUM CHLORIDE 20 MEQ TABLET.ER PO (08:13)
[2021-01-09] MEDS: HEPARIN SODIUM 5,000 UNITS/ML VIAL 5000 UNITS SUB-Q ×2 (08:13→21:18)
[2021-01-09] MEDS: valACYclovir HCL 500 MG TABLET PO ×2 (08:13→17:03)
[2021-01-09] MEDS: FOLIC ACID 0.4 MG TABLET PO (08:13)
[2021-01-09] MEDS: cloNIDine 0.1 MG/24 HR PATCH 1 PATCH TRANSDERM (09:07)
[2021-01-09] MEDS: QUEtiapine FUMARATE 25 MG TABLET PO (13:03)
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
[2021-01-09 21:06] VITALS: BP 139/68; PULSE 59; RESP 12; TEMP 36.9; O2SAT 95
[2021-01-09] MEDS: LATANOPROST 0.005% OP SOLN 2.5 ML BTL 1 DROP EACH EYE (21:17)
[2021-01-09] MEDS: CARBIDOPA/LEVODOPA 25/100 MG CR TABLET 1 TABLET PO (21:18)
[2021-01-10 06:10] VITALS: BP 145/69; PULSE 62; RESP 16; TEMP 36.6; O2SAT 100
[2021-01-10] MEDS: CYANOCOBALAMIN 1,000 MCG TABLET 1000 MCG PO (08:05)
[2021-01-10] MEDS: AMOXICILLIN 500 MG CAPSULE PO ×2 (08:05→21:04)
[2021-01-10] MEDS: ASCORBIC ACID 500 MG TABLET PO (08:05)
[2021-01-10] MEDS: PARoxetine 20 MG TABLET 40 MG PO (08:05)
[2021-01-10] MEDS: CHOLECALCIFEROL 1,000 UNITS TABLET 5000 UNITS PO (08:05)
[2021-01-10] MEDS: cloNIDine 0.1 MG/24 HR PATCH 1 PATCH TRANSDERM (08:05)
[2021-01-10] MEDS: valACYclovir HCL 500 MG TABLET PO ×2 (08:05→16:49)
[2021-01-10] MEDS: CARBIDOPA/LEVODOPA 25/100 MG TABLET 2 TABLET PO ×4 (08:05→21:04)
[2021-01-10] MEDS: FOLIC ACID 0.4 MG TABLET PO (08:05)
[2021-01-10] MEDS: POTASSIUM CHLORIDE 20 MEQ TABLET.ER PO (08:05)
[2021-01-10] MEDS: HEPARIN SODIUM 5,000 UNITS/ML VIAL 5000 UNITS SUB-Q ×2 (08:06→21:04)
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
[2021-01-10] MEDS: QUEtiapine FUMARATE 25 MG TABLET PO (11:46)
--- NOTE | 2021-01-10 13:58 | PCOTNOTE ---
Attempted to see patient this PM for skilled OT session. Patient asleep upon entry, requiring touch and call of name to be aroused. Patient is observed to seem very drowsy, being unable to keep her eyes open. When asked about participation in therapy, patient was too drowsy to open eyes or give clear answer. Per [employer] TECHNICIAN, patient was agitated earlier this date and was given saraquil to relax and rest. Patient treatment was not able to be completed this date. Will plan to continue treatment per plan of care.
[2021-01-10 14:00] VITALS: BP 140/70; PULSE 60; RESP 18; TEMP 36.7; O2SAT 100
--- NOTE | 2021-01-10 18:49 | PC.NURSE ---
Received a call from care coordination to discuss discharge of patient. Per care coordination patient's son will be here early in the morning to take patient to [place] with him. Discharge orders will either be put in tonight or in the morning. Will pass along in report as well so they can be prepared and have the patient ready.
[2021-01-10 19:36] VITALS: BP 141/62; PULSE 64; RESP 14; TEMP 36.4; O2SAT 96
[2021-01-10] MEDS: LATANOPROST 0.005% OP SOLN 2.5 ML BTL 1 DROP EACH EYE (21:04)
[2021-01-10] MEDS: CARBIDOPA/LEVODOPA 25/100 MG CR TABLET 1 TABLET PO (21:04)
[2021-01-11] MEDS: QUEtiapine FUMARATE 25 MG TABLET PO (02:09)
[2021-01-11 05:57] VITALS: BP 150/58; PULSE 62; RESP 14; TEMP 36.7; O2SAT 97
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
[2021-01-11] MEDS: CHOLECALCIFEROL 1,000 UNITS TABLET 5000 UNITS PO (08:03)
[2021-01-11] MEDS: CARBIDOPA/LEVODOPA 25/100 MG TABLET 2 TABLET PO (08:03)
[2021-01-11] MEDS: ASCORBIC ACID 500 MG TABLET PO (08:03)
[2021-01-11] MEDS: POTASSIUM CHLORIDE 20 MEQ TABLET.ER PO (08:03)
[2021-01-11] MEDS: valACYclovir HCL 500 MG TABLET PO (08:03)
[2021-01-11] MEDS: FOLIC ACID 0.4 MG TABLET PO (08:03)
[2021-01-11] MEDS: HEPARIN SODIUM 5,000 UNITS/ML VIAL 5000 UNITS SUB-Q (08:03)
[2021-01-11] MEDS: CYANOCOBALAMIN 1,000 MCG TABLET 1000 MCG PO (08:03)
[2021-01-11] MEDS: AMOXICILLIN 500 MG CAPSULE PO (08:03)
[2021-01-11] MEDS: PARoxetine 20 MG TABLET 40 MG PO (08:03)
[2021-01-11] MEDS: cloNIDine 0.1 MG/24 HR PATCH 1 PATCH TRANSDERM (08:04)
== END 2021-01-11 09:32 | disposition home or self-care (01) ==
LOC: ANHED 17:38 → ANH3MED 19:44
PROVIDERS: Family Medicine; Internal Medicine; Admitting Provider Internal Medicine; Emergency Provider Emergency Medicine; PCP Internal Medicine; Visit Provider Internal Medicine
DX: T74.91XA Unspecified adult maltreatment, confirmed, initial encounter (principal); T07.XXXA Unspecified multiple injuries, initial encounter; D64.9 Anemia, unspecified; N19 Unspecified kidney failure; R41.82 Altered mental status, unspecified; G20 Parkinson's disease; F02.80 Dementia in other diseases classified elsewhere, unspecified severity, without behavioral disturbance, psychotic disturbance, mood disturbance, and anxiety; C90.00 Multiple myeloma not having achieved remission; Z96.0 Presence of urogenital implants; Z20.822 Contact with and (suspected) exposure to COVID-19
CPT/HCPCS: 36415; 70450; 72125; 74177; 80048; 81001; 85025; 85027; 85610; 85730; 96372; 97110; 97161; 97165; 97530; 97535; 99285; A9270; C9803; G0378; J1644; Q9967; U0003; U0005